=== PATIENT | female | born 1990 | race African-American/Black ===

== ENCOUNTER 2023-06-23 14:40 | Emergency (ER) | payer OTHER, MEDICAID, SELFPAY ==
[2023-06-23] VITALS (19 sets, daily range): BP systolic 94–139; BP diastolic 77–93; PULSE 80–98; RESP 12–22; TEMP 36.7; O2SAT 99–100
--- NOTE | ~2023-06-23 | CT_ITS ---
EXAMINATION: CT abdomen pelvis w con DATE: 06/23/2023 22:17 INDICATION: lower abd pain X2w, constiaption TECHNIQUE: Computed tomography (CT) of the abdomen and pelvis was performed with 100 mL Omnipaque-350 intravenous contrast. Automated exposure control and iterative reconstruction technique were employe d. The dose-length product was 171.32 mGy-cm. COMPARISON: Pelvic ultrasound, same date. FINDINGS: Lower thorax: Unremarkable Liver: Normal. Biliary/Gallbladder: Gallbladder is normal. No bile duct dilation. Pancreas: No mass or duct dilation. Spleen: Normal. Adrenals:No mass. Kidneys: No suspicious mass, obstructing stone, or hydronephrosis. GI tract: Moderate diffuse distal esophageal and gastric wall edema. No small or large bowel dilation . Uniform bowel wall enhancement. No bowel wall thickening. Appendix not visualized due to the lack o f intra-abdominal fat, closely applied bowel loops, and variable density bowel content. Mesentery/Peritoneum: No ascites, mass, or free air. Retroperitoneum: No mass. Pelvis: Mild bladder wall thickening in a partially distended urinary bladder normal uterus. Normal b ilateral ovaries. Soft Tissues: Soft tissues and body wall unremarkable. Bones: No acute osseous finding. Sclerotic lesion in the right posterior superior iliac spine, likel y giant bone [place]. IMPRESSION: Moderate esophagitis/gastritis. Appendix not visualized. No definite inflammatory process detected in the right lower quadrant. Bladder wall thickening may be secondary to incomplete distention or cystitis. Reviewed, dictated and finalized at location K.
--- NOTE | ~2023-06-23 | US_ITS ---
EXAMINATION: US pelvic complete w TV DATE: 06/23/2023 20:22 INDICATION: lower abd pain X2w, hx endometrisos TECHNIQUE: Multiple transabdominal and endovaginal sonographic images of the pelvis were obtained. COMPARISON: None. FINDINGS: Uterus: 6.7 x 3.9 x 4.5 cm. Heterogeneous and hypervascular uterine parenchyma. 1 cm hypoechoic regio n within the endometrium in the left fundal region. Trace endometrial fluid. Endometrial complex keya ures 6 mm. Right Ovary: 3.9 x 2.4 x 3.4 cm. Vascular flow is present. No adnexal mass. Left Ovary: 4.2 x 2.4 x 2.4 cm. Vascular flow is present. No adnexal mass. There is no free fluid in the pelvis. IMPRESSION: 1 cm hyperechoic focus in the endometrium may represent clot or endometrial polyp. Consider gynecolog y referral. Heterogeneous hypervascular uterine parenchyma as can be seen with adenomyosis. In addition to the ab ove constipation, pelvic MR may be helpful for confirmation. Reviewed, dictated and finalized at location K. IMPRESSION: 1 cm hyperechoic focus in the endometrium may represent clot or endometrial douglas yp. Consider gynecology referral. Heterogeneous hypervascular uterine parenchyma as can be seen with adenomyosis. In addition to the above constipation, pelvic MR may be helpful for confirmati on.
--- NOTE | 2023-06-23 18:52 | ED.ABDPAIN ---
HPI - Abdominal Pain General Chief Complaint: Abdominal Pain Stated Complaint: abd pain Time Seen by Provider: 06/23/23 18:39 Source: patient Mode of arrival: ambulatory Limitations: no limitations History of Present Illness HPI narrative: Patient is a 32 y/o female who presents to the ED with c/o lower abdominal pain. Patient reports having pain for the last 2 weeks. She has history of endometriosis and has required 2 previous laparoscopic surgeries in the past. She also states she has a history of endometrial polyp and is supposed to have an MRI of her pelvis performed soon. She sees an [employer] TECHNICIAN and all melanoma. She called the office today to make an appointment about her symptoms, but has not heard back yet. She states the pain feels similar to what she experienced with her previous endometriosis flares. Pain somewhat radiates around to her lower back. She reports having persistent nausea and vomiting over the last few weeks. She states she has been unable to keep down any food or drink. She denies feeling nauseous upon my evaluation. She has not tried anything for pain. Denies diarrhea. Reports possible constipation, unsure of when last bowel movement was. Denies fever. Denies vaginal bleeding, vaginal discharge, dysuria, hematuria. Related Data Allergies Allergy/AdvReac Type Severity Reaction Status Date / Time haloperidol [From Haldol] Allergy Unknown Verified 06/23/23 15:21 Review of Systems Review of Systems: CONSTITUTIONAL: Denies fever, chills, or sweats. CARDIOVASCULAR: Denies chest pain. RESPIRATORY: Denies dyspnea. GASTROINTESTINAL: See HPI. GENITOURINARY: See HPI. SKIN: Denies rash or itching. MUSCULOSKELETAL: See HPI. All systems reviewed & are unremarkable except as noted in HPI and below [facility] Past Medical History Medical History (Updated 06/24/23 @ 00:01 by Background Daemon) Endometriosis Exam Narrative: GENERAL: Well appearing, thin, non-toxic, in no acute distress. HEAD: Normocephalic, atraumatic. NECK: Supple. No adenopathy, no masses. RESPIRATORY: Airway patent, respirations nonlabored. Clear to auscultation bilaterally, no rales, rhonchi, wheezing. CARDIOVASCULAR: Regular rate and rhythm without murmurs, rubs, or gallops. Radial pulses 2+ and equal bilaterally. ABDOMINAL: Soft, diffuse lower abdominal tenderness, no significant focal tenderness. Nondistended, no hepatosplenomegaly. Normoactive BS. MUSCULOSKELETAL: Moves all extremities. Strength/ROM intact without gross deformities. SKIN: Warm, dry, normal color. No rashes. NEURO: A&O X3. Speech clear. Cranial nerves II-XII grossly intact. Steady gait. No ataxic movements. PSYCHIATRIC: Appropriate mood and affect. Normal interaction. Course Vital Signs Vital signs: Vital Signs Temperature 98.0 F 06/23/23 15:14 Pulse Rate 88 06/23/23 15:14 Respiratory Rate 18 06/23/23 15:14 Blood Pressure 108/81 06/23/23 15:14 Pulse Oximetry 100 06/23/23 15:14 Oxygen Delivery Room Air 06/23/23 15:14 Temperature 98.0 F 06/23/23 15:14 Pulse Rate 93 06/23/23 21:51 Respiratory Rate 18 06/23/23 21:51 Blood Pressure 115/81 06/23/23 21:16 Pulse Oximetry 100 06/23/23 21:16 Oxygen Delivery Room Air 06/23/23 15:14 MDM - Abdominal Pain MDM Narrative Medical decision making narrative: Patient presented to ED with 2-week history of lower abdominal pain. Hx endometriosis. Vital signs stable upon arrival. Patient in no acute distress. Diffuse lower abdominal tenderness on exam. No significant focal tenderness. No surgical abdomen. CBC with minimal leukocytosis of 10.3. Minimal anemia. No records to compare to. Patient denying any recent bleeding. CMP unremarkable. Minimal transaminitis. UA with 4+ ketones, 1+ leuk esterase, 6-10 RBC/WBC. Patient denying any urinary symptoms. No concern for UTI. Will send for culture to determine need for treatment. Patient in agreement with this. Fluids s
[2023-06-23] MEDS: MORPHINE SULFATE (*CRX) 4 MG/ML INJ IV PUSH (19:27)
[2023-06-23] MEDS: SODIUM CHLORIDE 0.9% IV 1,000 ML 999 ML IV CONT (19:27)
[2023-06-23] MEDS: ONDANSETRON INJ 4 MG/2 ML VIAL IV PUSH (19:27)
[2023-06-23 19:34] LABS: Basophils Percent Auto 0.4 % (0.2-1.2); Eosinophils Absolute Auto 0.1 K/mm3 (0-0.3); Eosinophils Percent Auto 0.7 % (0-4.4); Hematocrit 37.1 % (37.0-47.0); Hemoglobin 11.3 g/dL (12.0-15.0); Immature Granulocyte Absolute 0.03 K/mm3 (0.00-0.031); Immature Granulocyte Percent A 0.3 % (0-0.5); Lymphocytes Absolute Auto 2.43 K/mm3 (0.9-3.2); Lymphocytes Percent Auto 23.5 % (18.3-44.2); Mean Corpuscular HGB Conc 30.5 g/dl (32-36); Mean Corpuscular Hemoglobin 26.6 pg (26-34); Mean Corpuscular Volume 87.3 fl (80-100); Mean Platelet Volume 10.6 fl (7.4-10.4); Monocytes Percent Auto 9.6 % (2.6-8.5); Neutrophils Absolute Auto 6.8 K/mm3 (1.3-6.7); Neutrophils Percent Auto 65.5 % (45.5-73.1); Platelet Count Result 271 k/mm3 (150-375); Red Blood Count 4.25 M/mm3 (4.2-5.4); Red Cell Distribution Width 16.7 % (11.5-14.5); White Blood Count 10.3 K/mm3 (4.5-10.0)
[2023-06-23 19:40] LABS: Alanine Aminotransferase 60 U/L (6-35); Albumin Level 4.3 g/dL (3.5-5.1); Alkaline Phosphatase 53 U/L (38-126); Anion Gap 10 mmol/L (8-16); Aspartate Amino Transferase 47 U/L (14-36); Bilirubin,Total 0.5 mg/dL (0.2-1.3); Blood Urea Nitrogen 11 mg/dL (7-17); Calcium 8.9 mg/dL (8.4-10.2); Carbon Dioxide 26 mmol/L (22-30); Chloride 101 mmol/L (98-107); Estimated Glomerular Filt Rate > 60; Glucose 77 mg/dL (65-110); Lipase 56 U/L (23-300); Potassium 3.7 mmol/L (3.4-5.0); Sodium 137 mmol/L (137-145)
[2023-06-23 19:41] LABS: Appearance Urine Clear (Clear); Bacteria Urine Rare /hpf; Bilirubin Urine Negative (Negative); Color Urine Yellow (Yellow); Glucose Urine UA Negative (Negative); Ketones Urine 4+ mg/dL (Negative); Leukocyte Esterase Ur 1+ LEU/UL (Negative); Nitrate Urine Negative (Negative); Non Pathogenic Casts 0-2; Protein Urine Trace mg/dL (Negative); Specific Grav Ur 1.028 (1.001-1.035); Squamous Epithelial Cell Urine Moderate /hpf (Few); pH Urine 6.5 (5.0-9.0)
[2023-06-23 19:50] LABS: Add Urine Microscopic? YES
[2023-06-23 21:41] LABS: Pregnancy On Board Control Positive; Urine Pregnancy Test Negative
== END 2023-06-23 23:16 | disposition home or self-care (01) ==
PROVIDERS: Emergency Provider Physician Assistant; PCP Nurse Practitioner Family
DX: R10.30 Lower abdominal pain, unspecified (principal); N80.03 Adenomyosis of the uterus; N84.0 Polyp of corpus uteri; R82.90 Unspecified abnormal findings in urine
CPT/HCPCS: 36415; 74177; 76830; 76856; 80053; 81001; 81025; 83690; 85025; 87086; 87088; 96361; 96374; 96375; 99284; J2270; J2405; J7030; Q9967